=== PATIENT | female | born 1950 | race Caucasian/White ===

== ENCOUNTER 2016-10-04 16:10 | Inpatient (IN) | payer MEDICARE, BC ==
--- NOTE | ~2016-10-04 | EKG ---
PATIENT: FRANCK CHEN UNIT #: [id number] Ventricular Rate: 89 BPM Atrial Rate: 89 BPM P-R Interval: 138 ms QRS Duration: 70 ms Q-T Interval: 356 ms QTC Calculation(Bezet): 433 ms P Milton: 50 degrees Calculated T Milton: 71 degrees Diagnosis Line: Sinus rhythm with Premature atrial complexes Diagnosis Line: Otherwise normal ECG Diagnosis Line: When compared with ECG of 02-APR-2014 11:10, Diagnosis Line: Premature atrial complexes are now Present Diagnosis Line: Criteria for Inferior infarct are no longer Diagnosis Line: Present Diagnosis Line: Confirmed by JOSE REYES MD ([id number]) on 10/06/2016 Diagnosis Line: 9:14:34 AM INTERPRETING MD: AMY LUIS
--- NOTE | ~2016-10-04 | DS ---
Unit #: [id number] #: [id number] Patient: FRANCK CHEN [id number] [address] [place], [place] [address] [id number] I MR#: [id number] NAME: FRANCK CHEN ROOM: [facility] Age: 66 Sex: F Admission Date: 10/04/2016 : 1950 Discharge Date: 10/07/2016 Attending Physician: Neftaly Villalobos M.D. Primary Care Physician: Won Ball M.D. DISCHARGE SUMMARY DISCHARGE DIAGNOSES 1. Diabetes mellitus with poorly controlled blood sugars. 2. Acute kidney injury. 3. Hyperkalemia. 4. History of urinary tract infection. 5. Volume depletion. DISCHARGE MEDICATIONS Cymbalta 60 mg b.i.d., miconazole cream PV q.h.s. x7 days, Ditropan 5 mg p.o. b.i.d., Levemir 40 units subcu q.a.m., and 10 p.m., Novolog insulin dose per Dr. Gayle. HOSPITAL COURSE A 66-year-old white female admitted with hyperglycemia and acute kidney injury. Please refer to H and P. She has had a urinary tract infection and started on Septra. She has also been started on a new oral hypoglycemic i.e. Xigduo XR. She developed nausea and decreased p.o. intake. She did not follow her blood sugars. She presented here and her glucose was 455, creatinine was 1.9, sodium was 125, lactic acid level was 1, hemoglobin A1c was 14.7. She was hydrated with half-normal saline and started on a sliding scale insulin and her Xigduo was discontinued. She was switched from Septra to Levaquin. Urine culture returned negative. Of note, also her potassium was elevated when she came in at 6.3, and fell to 4.5 by discharge. Her creatinine fell to 1.1. Sodium increased to 138. She will be discharged home on insulin per Dr. Gayle. She wishes to follow up with him for that and possible rub. She will not be discharged on any antibiotics. Dictated by... Geovanny Siegel M.D. CAROLINA/daniel TD: 10/08/2016 07:13 JOB #: [id number] CC: Kristie Rowland M.D. Unit #: [id number] #: [id number] Patient: FRANCK CHEN DISCHARGE SUMMARY Page 1 of 1 X Geovanny Siegel MD X DISCHARGE SUMMARY
--- NOTE | ~2016-10-04 | A ---
[facility] Nutrition Therapy DATE: 10/05/16 Patient: FRANCK CHEN Physician: ARNULFO Address: [address] Room/Bed: [address] [place] [address], Zip: [place] [address] Admit Date: 10/04/16 Date of : [birth year] Height: 5 7 Weight: 180 82.1 NUTRITIONAL ASSESSMENT: REASON: 4 POINTS NUTRITION SCREEN RISK RE: 30# UNINTENTIONAL WEIGHT LOSS 66 yo female admitted for dehydration, DM PMH: Lap band in 2008, DM Anthropometrics: Ht: 67" wt: 81.6 kg BMI: 28.2 Labs: Na+ 130 Cl- 93 Gluc 259 BUN 37 Creat 1.6 Accuchecks 236-292 GFR 34.4 Meds: Novolog, levaquin (IV), D5%, sodium bicarbonate, laxative of choice I/O & Bowel function: 1460/3, last BM 10/02 Skin Integrity: Rash inner thighs Edema: none noted Diet: Consistent carbohydrate Assessment: Chart reviewed, events noted. RD spoke with the pt at bedside, who was asleep at time of visit. RD woke the pt up, and she was continually drowsy throughout nutrition interview. Pt confirmed that she has had ~30# of unintentional weight loss due to being ill over the past 3 months. Pt is reportedly eating less with decreased appetite for 3 months. Pt states that she ate well this morning fot breakfast. RD discussed the importance of adequate nutrition in relation to the pt's h/o DM. Pt agreed, and began to fall asleep. Pt did agree to Glucerna supplements. RD will order and follow up to further discuss nutritional needs. Dx: Inadequate protein-energy intake RT decreased appetite AEB pt reported 30# weight loss in 3 months, poor intake. Intervention: 1. Consistent carbohydrate diet 2. Glucerna BID Monitoring, Evaluation and Goals: 1. Oral intake; tolerate >50-75% meals and supplements 2. Labs; WNL 3. Weight; prevent further unintentional weight loss [facility] Nutrition Therapy DATE: 10/05/16 Patient: FRANCK CHEN Physician: ARNULFO Address: [address] Room/Bed: [address] [place] [address], Zip: [place] [address] Admit Date: 10/04/16 Date of : 51 Height: 5 7 Weight: 180 82.1 Recommendations: 1. Continue consistent carbohydrate diet as tolerated. 2. Glucerna BID for supplemental nutrition as needed. Pt is at mild-moderate nutritional risk. RD will follow up per protocol. Respectfully, DANY MORENO RD, LD Food and Nutritional Services [facility] cc: client file
--- NOTE | ~2016-10-04 | CR72 ---
[facility] A Service of [facility] RADIOLOGY TEXT RESULTS PATIENT: FRANCK CHEN LOCATION: [facility] 326- : 51 UNIT #: [id number] AGE: [address]: Neftaly Villalobos MD SEX: F ORDER DR: [id number] [facility] [address] [facility]. [place], [place] [address] [id number] I MR#: [id number] Acc #: [id number] NAME: FRANCK CHEN : 1950 SEX: F STUDY DATE/TIME: 10/04/2016 16:54 UNIT: [address] ROOM: [facility] STUDY DESCRIPTION: CR Chest Single View Portable Attending Physician: Neftaly Villalobos M.D. Ordering Physician: Connor Handley M.D. Primary Care Physician: Won Ball M.D. MEDICAL IMAGING REPORT This report is preliminary unless electronic signature is present EXAM Portable chest INDICATION 66-year-old female with shortness of breath for 1 week. Comparison with 10/13/2013. FINDINGS The lungs are well expanded and clear. Heart size is normal. Calcified hilar lymph nodes. IMPRESSION No active disease. Dictated by... Eleuterio Palma M.D. THIS IS AN ELECTRONICALLY VERIFIED REPORT Eleuterio Palma M.D. at 10/05/2016 11:32 AM ARS/edward TD: 10/05/2016 09:44 JOB #: [id number] MEDICAL IMAGING REPORT Page 1 of 1 COPY
--- NOTE | ~2016-10-04 | HP ---
Unit #: [id number] #: [id number] Patient: FRANCK ALANIS [id number] [address] [place], [place] [address] [id number] I MR#: [id number] NAME: FRANCK ALANIS ROOM: [facility] Age: 66 Sex: F Admission Date: 10/04/2016 : 1950 Attending Physician: Neftaly Villalobos M.D. Primary Care Physician: Won Ball M.D. HISTORY AND PHYSICAL HISTORY OF PRESENT ILLNESS Ms. Alanis is a 66-year-old white female who presented because of dizziness and falling at home. She had apparently developed a urinary tract infection about 2 weeks ago. A week ago, this last Monday, she was started on Septra DS. She was also noted to have elevated blood sugars and she was started on Xigduo XR. She developed nausea with that, could not eat, became dizzy. She actually fell out of her bathtub then came and presented to the emergency room. In the emergency room, blood pressure was recorded at 132/43, O2 saturation was 100%, pulse was 89, respiratory rate was 15 and temperature was 97.8. Orthostatic blood pressures were ordered but none are in the electronic medical records. Her arterial blood gases revealed a pH of 7.35, pCO2 of 24, pO2 of 98 I believe on room air. Chemistries were significant for a glucose of 455, creatinine 1.9, sodium 125, potassium 6.3, CO2 of 17. Followup labs this morning, creatinine had fallen to 1.6, sodium 130, CO2 is 27, glucose 259. Lactic acid level was 1. Hemoglobin A1c was 14.7. White blood cell count was 12,400, hematocrit 44.1. Urinalysis revealed 0-2 wbc's, no leukocyte esterase; culture was not done. PAST MEDICAL HISTORY Significant for: Diabetes. PAST SURGICAL HISTORY 1. Hysterectomy. 2. Lap band procedure. HOME MEDICATIONS 1. Cymbalta. 2. Lantus. 3. Humalog. 4. Xigduo XR. 5. She has been on Bactrim times 7 days. ALLERGIES Prozac. SOCIAL HISTORY No alcohol. No illicit drugs. No tobacco. FAMILY HISTORY Negative for lung disease. REVIEW OF SYSTEMS Unit #: [id number] #: [id number] Patient: FRANCK ALANIS 10-point systems negative other than mentioned above. PHYSICAL EXAMINATION VITAL SIGNS: Blood pressure 124/68, pulse 78, respiratory rate 20, afebrile. GENERAL: White female in no distress, lying in bed, awake, alert and oriented x3. HEENT: Normocephalic, atraumatic. Pupils equal, round, reactive. Sclerae anicteric. Nasal passages patent. Posterior pharynx clear. Mallampati class III-IV. NECK: Supple, trachea midline. No cervical or supraclavicular lymphadenopathy. LUNGS: Clear to auscultation and percussion. HEART: Regular rate and rhythm. Could not appreciate murmur, rub or gallop. ABDOMEN: Nontender. Bowel sounds are present. No hepatosplenomegaly. EXTREMITIES: Without clubbing, cyanosis, or edema. NEUROLOGIC: Awake, oriented x3. Cranial nerves intact. Muscle strength symmetric bilaterally. PSYCHIATRIC: Affect calm. SKIN: Warm and dry. DIAGNOSTIC STUDIES LABORATORY: As noted. IMPRESSION 1. Severe hyperglycemia. 2. Acute kidney injury, possibly secondary to dehydration and/or Septra. 3. Hyperkalemia, probably secondary to dehydration and possibly Septra. PLAN 1. Hydration. 2. Place on sliding scale insulin. 3. Will check perez cultures. 4. Check urine culture. 5. Check urine eosinophils. 6. Will check ultrasound of abdomen. 7. Will have Dr. Gayle see and evaluate. 8. Further recommendations pending this. Dictated by Kristie Dotson/matilde TD: 10/05/2016 18:44 JOB #: [id number] Unit #: [id number] #: [id number] Patient: FRANCK ALANIS HISTORY AND PHYSICAL Page 1 of 1 X Geovanny Siegel MD X HISTORY AND PHYSICAL
--- NOTE | ~2016-10-04 | CO ---
Unit #: [id number] #: [id number] Patient: FRANCK CHEN [id number] [address] [place], [place] [address] [id number] I MR#: [id number] NAME: FRANCK CHEN ROOM: [facility] Age: 66 Sex: F Admission Date: 10/04/2016 : 1950 Attending Physician: Neftaly Villalobos M.D. Primary Care Physician: Won Ball M.D. Consultation Date: 10/05/2016 CONSULTATION REPORT REASON FOR CONSULTATION Uncontrolled type 2 diabetes mellitus. HISTORY OF PRESENT ILLNESS This is a 66-year-old female with history of type 2 diabetes mellitus for almost [address] Ball. She is an insulin dependent, but she has not been taking her insulin over the last 1 week. She was seen by primary care physician Dr. Ball and started on Xigduo once a day but after taking her medicine she started having some nausea and feeling dizzy and weak for which she came to the emergency room, where her blood sugars were over 400. She reports she has not taken any insulin for 1 week. She is poor compliant with her diet. I have been asked to see the patient for management of diabetes mellitus. PAST MEDICAL HISTORY Type 2 diabetes mellitus, depression, insulin dependence. PAST SURGICAL HISTORY Lap-Band and hysterectomy. REVIEW OF SYSTEMS Twelve-point review of system was completed, please see HPI. Rest of the ten-point review of systems was unremarkable. The rest of review of system is unremarkable. HOME MEDICATIONS Lantus 70 units at bedtime, Humalog 10 units each meal, Cymbalta 20 mg daily, Xigduo which was started a week ago but discontinued. Bactrim for her UTI. ALLERGIES fluoxetine. SOCIAL HISTORY Lives at home. Declines tobacco or alcohol PHYSICAL EXAMINATION VITAL SIGNS: She is afebrile, hemodynamically stable. HEENT: EOMI. Pupils equally reactive to light. NECK: Supple. No thyromegaly noted. CHEST: Good air entry. CVS: Regular rhythm. S1, S2. No murmurs. ABDOMEN: Soft, nontender, bowel sounds positive. EXTREMITIES: No edema or ulcers are noted. Unit #: [id number] #: [id number] Patient: FRANCK CHEN DIAGNOSTIC STUDIES LABORATORY RESULTS: On admission, her glucose was above 400, sodium 125, potassium 6.3, BUN 41, creatinine of 1.9. The patient's A1c is above 14%. ASSESSMENT 1. Type 2 diabetes mellitus, poorly controlled with acute hyperglycemia. 2. Acute kidney injury. 3. Pseudohyponatremia. 4. Dehydration. 5. Hyperkalemia. PLAN I will continue IV hydration with normal saline. I had a lengthy discussion with the patient about her diet modification. We will put her back on her Levemir 40 units at bedtime, NovoLog 10 units with each meal. Monitor electrolytes. Monitor renal function closely. We will continue to follow the patient for further management. Dictated by... Kristie Rowland/daniel TD: 10/07/2016 00:36 JOB #: [id number] CONSULTATION REPORT Page 1 of 1 X William Gayle MD X CONSULTATION REPORT
--- NOTE | ~2016-10-04 | FU ---
[facility] Nutrition Therapy DATE: 10/07/16 Patient: FRANCK CHEN Physician: ARNULFO Address: [facility] DAVID OLGUIN Room/Bed: [address] [place] [address], Zip: [place] [address] Admit Date: 10/04/16 Date of : [birth year] Height: 5 7 Weight: 192 87.4 NUTRITION MONITORING/FOLLOW-UP: Reason: RN REQUEST TO SEE THE PT AND FAMILY FOR DIABETIC DIET EDUCATION Assessment: Chart reviewed, events noted. RD already following the pt for weight loss; however, RN requested that RD see the pt for CCD education. RD spoke with the pt and her daughter at bedside. Pt and daughter expressed desire to make healthier dietary choices. RD provided extensive 45 gram consistent carbohydrate diet education. Pt and her daughter voiced understanding, and the pt's daughter explained that she would be helping the pt make these changes. RD provided printed materials and encouraged the pt to contact RD with any further questions. Recommendations: 1. Pt to follow a 45 gram consistent carbohydrate diet as instructed by RD. 2. Pt may benefit from seeing an outpatient RD for accountability. RD will continue to follow up per protocol. Respectfully, DANY MORENO RD, LD Food and Nutritional Services [facility] cc: client file
--- NOTE | ~2016-10-04 | US77 ---
[facility] A Service of [facility] RADIOLOGY TEXT RESULTS PATIENT: FRANCK CHEN LOCATION: [facility] 326- : 51 UNIT #: [id number] AGE: [address]: Neftaly Villalobos MD SEX: F ORDER DR: [id number] [facility] [address] [facility]. [place], [place] [address] [id number] I MR#: [id number] #: [id number] NAME: FRANCK CHEN : 1950 SEX: F STUDY DATE/TIME: 10/06/2016 8:08 UNIT: [address] ROOM: [facility] STUDY DESCRIPTION: US Kidney Bilateral Complete Attending Physician: Neftaly Villalobos M.D. Ordering Physician: Geovanny Siegel M.D. Primary Care Physician: Won Ball M.D. MEDICAL IMAGING REPORT This report is preliminary unless electronic signature is present EXAM Renal ultrasound INDICATIONS Acute renal failure TECHNIQUE Henley-scale and color Doppler sonographic images were obtained through the kidneys and bladder. FINDINGS The patient's right kidney is normal in appearance. There are no solid or cystic renal masses. There is no hydronephrosis and no cortical thinning is identified. Bladder also appears unremarkable. The left kidney potentially may have some nonobstructing stones within it, but there are no solid or cystic renal masses and again there is no hydronephrosis. IMPRESSION I suspect left renal stones without evidence of obstruction. Otherwise unremarkable exam. Dictated by... Yoko Palumbo M.D. THIS IS AN ELECTRONICALLY VERIFIED REPORT Yoko Palumbo M.D. at 10/06/2016 4:38 PM AFF/to TD: 10/06/2016 12:29 JOB #: [id number] MEDICAL IMAGING REPORT Page 1 of 1 COPY
[2016-10-04 15:47] LABS: BASOPHIL# 0.1 X10e3 (0-0.3); BASOPHIL% 0.5 % (0-2.5); EOSINOPHIL% 0.4 % (0.0-7.0); HEMATOCRIT 44.1 % (35.0-45.0); HEMOGLOBIN 13.9 gm/dL (12.0-16.0); LYMPHOCYTE# 0.9 X10e3 (1.0-3.5); LYMPHOCYTE% 6.9 % (17.0-45.0); MEAN CELL VOLUME 89.1 FL (83-96); MEAN CORPUSCULAR HEMOGLOBIN 28.1 PG (28-34); MEAN CORPUSCULAR HGB CONC 31.6 g/dL (30-36); MEAN PLATELET VOLUME 9.2 FL (6.5-11.5); MONOCYTE# 0.6 X10e3 (0-1.0); MONOCYTE% 5.1 % (3.0-12.0); NEUTROPHIL# 10.8 X10e3 (1.5-7.1); NEUTROPHIL% 87.1 % (40-75); PLATELET COUNT 388 X10e3 (140-420); RED BLOOD COUNT 4.95 X10e (3.90-5.30); RED CELL DISTRIBUTION WIDTH 13.4 % (11.0-15.5); WHITE BLOOD COUNT 12.4 X10e3 (4.0-10.5)
[2016-10-04 15:49] LABS: DIFF IND NO
[~2016-10-04 16:10] MED LIST: CERTAGEN PO; HUMALOG100 U/ML SUBQ; LANTUS100 U/ML SUBQ; METFORMIN PO
[2016-10-04 16:11] LABS: ALBUMIN SERUM 3.6 g/dL (3.5-5.0); BILIRUBIN, DIRECT 0.1 mg/dL (0.0-0.2); BILIRUBIN,INDIRECT 1.1 mg/dL (0.0-0.9); BILIRUBIN,TOTAL 1.2 mg/dL (0.2-2.0); BUN/CREATININE RATIO 21.57; CALCIUM SERUM 9.3 mg/dL (8.4-10.2); CREATININE SERUM 1.9 mg/dL (0.6-1.4); GLOM FILT RATE Estimated 28.2 mL/min (>60)
[2016-10-04 16:13] LABS: POTASSIUM 6.3 mmol/L (3.5-5.1)
[2016-10-04 16:28] LABS: URINE SOURCE CLEAN CATCH
[2016-10-04 16:36] LABS: URINE APPEARANCE CLEAR; URINE BILIRUBIN NEG (NEG); URINE BLOOD TRACE (NEG); URINE COLOR YELLOW; URINE GLUCOSE >1000 MG/DL (NEG); URINE KETONE 2+ (NEG); URINE LEUKOCYTE ESTERASE NEG (NEG); URINE NITRATE NEG (NEG); URINE PROTEIN TRACE (NEG); URINE SPECIFIC GRAVITY 1.025 (1.003-1.035); URINE UROBILINOGEN 0.2 MG/DL (NEG)
[2016-10-04 16:38] LABS: URBCS1 AUWI 0-2 /[HPF] (0-2); URINE BACTERIA AUWI NEG (NEGATIVE); URINE SQUAMOUS EPITHELIAL CELL NONE SEEN /[HPF]; UWBCS1 AUWI 0-2 (0-5)
[2016-10-04 16:42] LABS: CULTURE INDICATED? NO
[2016-10-04 16:47] LABS: ARTERIAL BLD GAS O2 SATURATION 96.1 % (90.0-100.0); ARTERIAL BLOOD GAS CARBOXY HB 0.6 %sat (0.0-9.0); ARTERIAL BLOOD GAS HCO3 14.4 mmol/L; ARTERIAL BLOOD GAS MET HB 1.3 %sat (0.0-2.0); ARTERIAL BLOOD GAS PCO2 24.7 mmHg (35.0-45.0); ARTERIAL BLOOD GAS PO2 98.9 mmHg (80.0-100); ARTERIAL BLOOD GAS pH 7.375 (7.350-7.450); ARTERIAL DRAW? YES
[2016-10-04 16:48] LABS: ARTERIAL BLOOD GAS ALLEN TEST NORMAL; ARTERIAL BLOOD GAS ART SITE RIGHT RADIAL
[2016-10-04 17:33] LABS: MAGNESIUM 2.4 mg/dL (1.6-3.0); PHOSPHOROUS 4.6 mg/dL (2.5-4.6)
[2016-10-05] MEDS ORDERED: DULOXETINE HCL60 MG PO (00:50)
[2016-10-05] MEDS ORDERED: LANTUS100 U/ML SUBQ (00:51)
[2016-10-05] MEDS ORDERED: HUMALOG100 U/ML SUBQ (00:55)
[2016-10-05] MEDS ORDERED: DITROPAN5 MG PO (00:59)
[2016-10-05] MEDS ORDERED: XIGDUO XR (01:03)
[2016-10-05 08:03] LABS: BASOPHIL# 0.1 X10e3 (0-0.3); BASOPHIL% 0.9 % (0-2.5); EOSINOPHIL# 0.3 X10e3 (0-0.7); EOSINOPHIL% 2.7 % (0.0-7.0); HEMATOCRIT 41.1 % (35.0-45.0); HEMOGLOBIN 13.1 gm/dL (12.0-16.0); LYMPHOCYTE# 2.8 X10e3 (1.0-3.5); LYMPHOCYTE% 26.9 % (17.0-45.0); MEAN CELL VOLUME 87.6 FL (83-96); MEAN PLATELET VOLUME 8.9 FL (6.5-11.5); MONOCYTE% 9.1 % (3.0-12.0); NEUTROPHIL# 6.3 X10e3 (1.5-7.1); NEUTROPHIL% 60.4 % (40-75); PLATELET COUNT 378 X10e3 (140-420); RED BLOOD COUNT 4.69 X10e (3.90-5.30); RED CELL DISTRIBUTION WIDTH 13.4 % (11.0-15.5); WHITE BLOOD COUNT 10.5 X10e3 (4.0-10.5)
[2016-10-05 08:04] LABS: DIFF IND NO
[2016-10-05 09:07] LABS: BUN/CREATININE RATIO 23.12; CREATININE SERUM 1.6 mg/dL (0.6-1.4); GLOM FILT RATE Estimated 34.4 mL/min (>60)
[2016-10-05 09:08] LABS: POTASSIUM 4.6 mmol/L (3.5-5.1)
[2016-10-06 09:35] LABS: BUN/CREATININE RATIO 29.09; CALCIUM SERUM 8.7 mg/dL (8.4-10.2); CREATININE SERUM 1.1 mg/dL (0.6-1.4); POTASSIUM 4.6 mmol/L (3.5-5.1)
[2016-10-06 11:39] LABS: HEMATOCRIT 43.2 % (35.0-45.0); HEMOGLOBIN 13.8 gm/dL (12.0-16.0); MEAN CELL VOLUME 87.2 FL (83-96); MEAN CORPUSCULAR HEMOGLOBIN 27.9 PG (28-34); MEAN PLATELET VOLUME 8.4 FL (6.5-11.5); RED BLOOD COUNT 4.95 X10e (3.90-5.30); RED CELL DISTRIBUTION WIDTH 13.1 % (11.0-15.5); WHITE BLOOD COUNT 8.6 X10e3 (4.0-10.5)
[2016-10-07 08:34] LABS: BUN/CREATININE RATIO 25.45; CALCIUM SERUM 9.3 mg/dL (8.4-10.2); CREATININE SERUM 1.1 mg/dL (0.6-1.4); GLOM FILT RATE Estimated 52.7 mL/min (>60); POTASSIUM 4.5 mmol/L (3.5-5.1)
[2016-10-07] MEDS ORDERED: ANTI-FUNGAL CR113 GM (15:36)
[2016-10-07] MEDS ORDERED: LEVEMIR SUBQ (15:38)
[2016-10-07] MEDS ORDERED: NOVOLOG100 U/ML (15:39)
[2016-10-07] MEDS ORDERED: NOVOLOG100 U/ML SUBQ (15:39)
== END 2016-10-07 18:05 | disposition home or self-care (01) | DRG 638 ==
LOC: CED 16:10 → CEDOF 17:49 → C3A PCU 19:44
PROVIDERS: Emergency Medicine; Internal Medicine
DX: E11.65 Type 2 diabetes mellitus with hyperglycemia (principal); N17.9 Acute kidney failure, unspecified; E87.1 Hypo-osmolality and hyponatremia; E86.0 Dehydration; E87.5 Hyperkalemia; Z79.4 Long term (current) use of insulin; Z90.710 Acquired absence of both cervix and uterus; Z98.84 Bariatric surgery status
CPT/HCPCS: 36415; 36600; 71010; 76770; 80048; 80076; 81003; 82150; 82803; 82947; 83036; 83605; 83690; 83735; 84100; 85025; 85027; 87040; 87086; 89190; 93005; 96360; 97116; 97162; 97166; 99285; G8978-GP; G8979-GP; G8987-GO; G8988-GO; G8989-GO; J0610; J1815; J1956; J7060